=== PATIENT | male | born 1975 | race Caucasian/White ===

== ENCOUNTER 2025-01-01 13:29 | Emergency (ER) | payer BC, SELFPAY ==
[2025-01-01 13:31] VITALS: BP 116/97
--- NOTE | 2025-01-01 13:45 | ED.GENMED ---
History of Present Illness
General
Chief Complaint: Rectal Bleeding
Source: patient
Exam Limitations: none
Time Seen by Provider: 01/01/25 13:43
Nursing documentation reviewed up to this point in time: agreed with
History of Present Illness
History of Present Illness:
49-year-old male with history of HTN, GERD presents for several episodes of blood per rectum since 11:30 a.m. yesterday. Initially it was mixed with diarrhea 2 episodes yesterday then at 530 and 8:30 AM today he had diarrhea with no blood and after
that he had 3 episodes of watery bloody liquid, last episode was 1 hour ago. He has had no abdominal pain, denies feeling dizzy or weak. Denies chest pain or shortness of breath. Denies nausea or vomiting. He felt so well that he went and played
golf today but he kept going to the bathroom so he decided to stop playing
He states his colonoscopy was 03/2022 and he was told he had internal hemorrhoids
Past History
Past History
ED Past Medical History: GERD and Hypercholesterolemia
ED Past Surgical History: None
Social History
Tobacco: Non-smoker
Alcohol: Occasional
Drug: None
Personal:
Living: with family
Employment: Employed
Family History
Family History: Negative Diabetes or CAD
Review of Systems
Review of Systems
Allergies reviewed?: Yes
All Other Systems: ROS reviewed and negative except as documented in HPI and ROS
Phy Exam
Physical Exam
Physical Exam:
GENERAL: No acute distress. A&Ox3.
CONSTITUTIONAL: Afebrile.
EYES: clear, conjunctivae normal
ENMT: moist mucus membranes, Pharynx nl
RESPIRATORY: Regular respirations, nonlabored, lungs clear.
CARDIOVASCULAR: Regular rate and rhythm, no murmurs, no rubs.
GI: Soft, nontender, normal BS
Rectal: No external hemorrhoids, no stool in rectal vault, mucus on gloved finger is hematest positive. Anoscope with visualization of the rectal nesbitt, no active bleeding, no abnormality noted
MUSCULOSKELETAL: Moves with ease. Well perfused.
SKIN: Warm, dry, pink
PSYCH: Normal mood and affect. Well kept, interactive and appropriate
NEUROLOGIC: Awake, alert and oriented. No focal neurological deficits
Course
Orders/Labs/Results
Orders:
Orders
01/01/25 14:06
Complete Blood Count/With Diff Urgent
Comprehensive Metabolic Panel Urgent
Abnormal Lab Results
01/01/25
14:06
Absolute Neuts (auto) 8.3 H 10^3/uL
(1.4-6.5)
Neutrophils % 81.4 H %
(42.2-75.2)
Lymphocytes % 13.1 L %
(20.5-51.1)
Total Bilirubin 2.8 H mg/dl
(0.2-1.3)
01/01/25 14:06
01/01/25 14:06
Vital Signs
Initial and Last Documented VS:
Initial Vital Signs
Temp Pulse Resp BP Pulse Ox
98.7 F 120 16 116/97 98
01/01/25 13:31 01/01/25 13:31 01/01/25 13:31 01/01/25 13:31 01/01/25 13:31
Last Documented Vital Signs
Temp Pulse Resp BP Pulse Ox
98.7 F 108 20 115/83 95
01/01/25 13:31 01/01/25 14:09 01/01/25 14:09 01/01/25 14:01/01/25 14:30
MDM/Problems Addressed
Differential Diagnosis Includes:
hemorrhoids, fissure, ruptured diverticulum
MDM/Problems Addressed:
49-year-old male with history of HTN, GERD presents for several episodes of blood per rectum since 11:30 a.m. yesterday. Initially it was mixed with diarrhea 2 episodes yesterday then at 530 and 8:30 AM today he had diarrhea with no blood and after
that he had 3 episodes of watery bloody liquid, last episode was 1 hour ago. He has had no abdominal pain, denies feeling dizzy or weak. Denies chest pain or shortness of breath. Denies nausea or vomiting. He felt so well that he went and played
golf today but he kept going to the bathroom so he decided to stop playing
He states his colonoscopy was 03/2022 and he was told he had internal hemorrhoids
Afebrile, abdomen benign, NAD
Rectal exam shows no external hemorrhoids, no stool in rectal vault, gloved finger with mucus hematest positive, rectal speculum inserted and no bleeding or other abnormality noted.
CBC normal
CMP With no clinically significant abnormality
No indication for imaging at this time as he has no pain, no diarrhea or rectal bleeding here, no infectious symptoms, labs unremarkable.
Discussed return instructions, informed he may need imaging if symptoms worsen
Out pt slip given for stool culture along with container.
*Pulse Oximetry
SaO2: 98
Oxygen Mode of Delivery: Room air
Patient hypoxic: not evaluated
*Critical Care Note
Total Time (30-74mins, 75-104mins- exclusive of procedures): Not Applicable
ED Attending Note
-
Portions of this chart may have been created with voice recognition software.� Occasional wrong word or��sound alike� substitutions may have occurred due to the inherent limitations of voice recognition software.
Discharge Plan
Departure
Patient Disposition: Home (Routine Discharge)
Date of Disposition: 01/01/25
Time of Disposition: 14:56
Patient with high blood pressure during this ER visit?: No
Condition: Good
Discharge Problem:
Rectal bleeding
Instructions: Hemorrhoids (DC), Anal Fissure (DC), Bloody stools in adults - ED (DC)
Prescriptions:
No Action
acetaminophen [Tylenol] 325 mg Tablet
650 mg PO DAILYPRN PRN (Reason: mild pain)
rosuvastatin [Crestor] 5 mg Tablet
5 mg PO QPM
Zepbound 12.5 mg/0.5 mL Pen Injector
12.5 mg SC TU
famotidine 20 MG tablet
20 mg PO DAILYPRN PRN (Reason: gerd)
Referrals:
your GI doctor at [place] [Other] - As needed
Yuniel Hudson, DO [Family Provider, Family Practice]
Activity Restrictions/Additional Instructions:
As we discussed, nothing worrisome in your workup here today.
Since you had no bowel movement here today, take the container we provided and see if you can give us a sample.
Drop it off at the outpatient lab here at the hospital along with the laboratory order slip I provided you.
Return here immediately for worsening rectal bleeding, bleeding with abdominal pain, fever, feeling faint or dizzy or feeling sicker in any way
Some things that could be causing the bleeding are: internal hemorrhoids, ruptured diverticulum (as I showed you in the drawing), anal fissure
Interventions
Interventions:
*Risk Screen - Suicide Last Done: 01/01/25 13:31
*General Assessment Last Done: 01/01/25 14:09
*Neglect/Abuse Screening Last Done: 01/01/25 13:31
*ED- Fall Risk Assessment Last Done: 01/01/25 14:09
*ED COVID-19 Vaccine History Last Done: 01/01/25 14:09
*Nursing Disposition Last Done: 01/01/25 14:59
BD-Orqjzi-Uvqafctvgk Assessment Last Done: 01/01/25 14:09
ED- Cardiac Assessment Last Done: 01/01/25 14:09
ED- Pulmonary Assessment Last Done: 01/01/25 14:09
Discharge Date and Time
Discharge Date/Time: 01/01/25 15:01
Print Language: KOSOVAN
[2025-01-01 14:03] VITALS: BP 115/83
[2025-01-01 14:09] VITALS: BP 115/83
[2025-01-01 14:20] LABS: Hematocrit 43.9 % (39.0-52.0); Hemoglobin 15.5 g/dL (13.0-18.0); Mean Corp Hgb Conc. 35.3 g/dL (33.0-37.0); Mean Corpuscular Volume 80.3 fL (80.0-94.0); Nucleated Red Blood Cells % 0 % (-); Platelet Count 175 10^3/uL (130-400); Red Cell Dist. Width 11.9 % (11.5-14.5)
[2025-01-01 14:38] LABS: ALT (SGPT) 30 U/L (0-50); AST (SGOT) 20 U/L (17-59); Albumin 4.8 g/dl (3.5-5.0); Alkaline Phosphatase 57 U/L (38-126); Blood Urea Nitrogen 18 mg/dl (9-20); Calcium 9.5 mg/dl (8.4-10.2); Carbon Dioxide 27 mmol/L (22-30); Chloride 107 mmol/L (98-107); Glucose 87 mg/dl (70-99); Potassium 4.4 mmol/L (3.5-5.1); Sodium 139 mmol/L (135-145); Total Protein 7.7 g/dl (6.3-8.2); eGFR > 60.00
== END 2025-01-01 15:01 | disposition home or self-care (01) ==
LOC: EMR 13:29
PROVIDERS: Registered Nurse; EMERGENCY PHYSICIAN Student in an Organized Health Care Education/Training Program; FAMILY PHYSICIAN Family Medicine
DX: K62.5 Hemorrhage of anus and rectum (principal); I10 Essential (primary) hypertension; K21.9 Gastro-esophageal reflux disease without esophagitis; E78.00 Pure hypercholesterolemia, unspecified; K64.8 Other hemorrhoids
CPT/HCPCS: 99283; 80053; 85025; 87045; 87046; 87324; 87427; 87449

== ENCOUNTER → 2025-01-01 16:05 | Outpatient (REF) | payer BC, SELFPAY | LOC: REG 16:05 | PROVIDERS: ATTENDING PHYSICIAN Registered Nurse; FAMILY PHYSICIAN Family Medicine; OTHER PHYSICIAN Internal Medicine Gastroenterology | DX: K62.5 Hemorrhage of anus and rectum (principal); R19.7 Diarrhea, unspecified | CPT/HCPCS: 87045; 87046; 87324; 87427; 87449 ==